=== PATIENT | male | born 1955 | race Caucasian/White ===

== ENCOUNTER 2024-04-06 08:47 | Day surgery (SDC) | payer BC ==
[2024-04-06 09:13] VITALS: RESP 16
[2024-04-06] MEDS: Lactated Ringers 1,000 ML IV SCH (09:27)
[2024-04-06] MEDS ORDERED: DIPRIVAN 200 MG/20 ML IV ONE ×3 (11:22→12:02)
[2024-04-06 12:36] VITALS: TEMP 97.3
[2024-04-06 12:45] VITALS: BP 120/90; PULSE 61; O2SAT 98
--- NOTE | 2024-05-05 10:33 | OP ---
SURGERY DATE/TIME: 05/04/2024 4714 - [id number] PREOPERATIVE DIAGNOSES: Screening/surveillance, history of multiple polyps. POSTOPERATIVE DIAGNOSES: 1) Multiple colon polyps. 2) Diverticulosis. 3) Hemorrhoids. PROCEDURES: Colonoscopy with hot snare polypectomy, cold snare polypectomy, cold forceps polypectomy. SURGEON: Ethel Servin MD ANESTHESIA: MAC. ESTIMATED BLOOD LOSS: Minimal. COMPLICATIONS: None. SPECIMENS: 1) Hepatic flexure polyp. 2) Transverse colon polyp. 3) Descending colon polyp. INDICATIONS: The patient presents for colonoscopy. He has a history of multiple polyps in the past. He has done well with his prep. Complete H and P and consent have been done. All questions have been answered to his satisfaction. He understands the risks, benefits, alternatives of the procedure. He wants to proceed. DESCRIPTION OF PROCEDURE AND FINDINGS: He was taken back to the endoscopy unit, laid in the left lateral decubitus position. Complete time-out was performed. First, a rectal exam was done. The patient does have hemorrhoids, internal and external, which do not require surgery. The scope was then inserted and gently advanced to the level of the cecum. We then took a good view of the entire colon. His prep was satisfactory. There was some liquid stool and a small amount of solid stool from diverticulosis, and we were able to irrigate this to achieve a satisfactory view. Multiple polyps were identified and were removed as follows. There was a hepatic flexure polyp that was about 4 to 5 mm taken in entirety with hot snare and retrieved. There was a proximal transverse colon polyp that was small and taken with the cold forceps in entirety. Then, there was a descending colon polyp that was also small about 3 mm and taken with a cold snare in entirety. All polyps were retrieved. All sites were hemostatic. All were removed fully. Then the scope was fully withdrawn. The patient tolerated the procedure very well. Outside of diverticulosis, there were no other significant findings. Plan will be for another colonoscopy in approximately 3 years. I discussed this with his family and he will also be following up with me as an outpatient for final results. All instructions have been given.
== END 2024-04-06 12:56 | disposition home or self-care (01) ==
LOC: SDC 08:47
PROVIDERS: ATTEND Surgery
DX: Z12.11 Encounter for screening for malignant neoplasm of colon (principal); Z09 Encounter for follow-up examination after completed treatment for conditions other than malignant neoplasm; Z86.010 Personal history of colon polyps; D12.4 Benign neoplasm of descending colon; D12.3 Benign neoplasm of transverse colon; K57.30 Diverticulosis of large intestine without perforation or abscess without bleeding; K64.4 Residual hemorrhoidal skin tags; K64.8 Other hemorrhoids
CPT/HCPCS: 88305; J2704